=== PATIENT | male | born 2000 | race Hispanic/Latino ===

== ENCOUNTER 2021-01-14 11:00 | Inpatient (IN) | payer OTHER ==
[~2021-01-14] VITALS: Ht 167.6 cm; Wt 66.8 kg
[2021-01-14 12:00] LABS: HEMATOCRIT 43.2 % (42.0-52.0); HEMOGLOBIN 15.5 g/dl (13.5-17.5); MEAN CORPUSCULAR HEMOGLOBIN 33.3 pg (27.0-33.0); MEAN CORPUSCULAR HGB CONC 35.9 g/dl (32.0-36.5); MEAN CORPUSCULAR VOLUME 92.7 fl (80.0-96.0); PLATELET COUNT, AUTOMATED 265 10^3/uL (150-450); RED BLOOD COUNT 4.66 10^6/uL (4.30-6.10); WHITE BLOOD COUNT 6.3 10^3/uL (4.0-10.0)
[2021-01-14 12:34] LABS: ACETAMINOPHEN LEVEL < 2.0 UG/ML (10.0-30.0); ALBUMIN 4.2 GM/DL (3.2-5.2); ALT/SGPT 32 U/L (12-78); BILIRUBIN,DIRECT 0.2 MG/DL (0.0-0.2); BILIRUBIN,TOTAL 0.5 MG/DL (0.2-1.0); BLOOD UREA NITROGEN 7 MG/DL (7-18); CALCIUM LEVEL 9.6 MG/DL (8.5-10.1); CARBON DIOXIDE LEVEL 27 MEQ/L (21-32); CHLORIDE LEVEL 104 MEQ/L (98-107); CREATININE FOR GFR 0.83 MG/DL (0.70-1.30); ETHYL ALCOHOL (ETHANOL) 0.027 % (0.000-0.010); GLUCOSE, FASTING 81 MG/DL (70-100); SALICYLATE LEVEL < 1.7 MG/DL (5.0-30.0); SODIUM LEVEL 136 MEQ/L (136-145); TOTAL PROTEIN 8.1 GM/DL (6.4-8.2)
[2021-01-14 12:48] LABS: AMPHETAMINES LEVEL URINE NEGATIVE (NEGATIVE); BARBITURATES URINE NEGATIVE (NEGATIVE); BENZODIAZEPINES URINE NEGATIVE (NEGATIVE); CANNABINOIDS URINE NEGATIVE (NEGATIVE); COCAINE METABOLITE URINE NEGATIVE (NEGATIVE); METHADONE URINE NEGATIVE (NEGATIVE); OPIATES URINE NEGATIVE (NEGATIVE); PHENCYCLIDINE URINE NEGATIVE (NEGATIVE)
[2021-01-14 14:23] LABS: TROPONIN I < 0.02 NG/ML (< 0.10)
--- NOTE | 2021-01-14 19:39 | ECGEPIP ---
[facility] - ED Test Date: 2021-01-14 Pat Name: KARISSA HORTON Department: Room: - Gender: Male [employer]st: : 2000 Requested By: CHRIS Blackwell Order Number: [id number] Reading MD: Amrit Carroll Measurements Intervals [place] Rate: 84 P: 29 [place]: 146 QRS: -75 QRSD: 92 T: 51 QT: 338 QTc: 399 Interpretive Statements Normal sinus rhythm with sinus arrhythmia Left axis deviation Pulmonary disease pattern ST elevation, probable early repolarozation NO PRIOR ECG FOR COMPARISON Electronically Signed on 01-14-2021 19:39:06 EST by Amrit Carroll
[2021-01-15] MEDS ORDERED: MOM 30ML SUSPENSION UDC PO PRN (10:55)
[2021-01-15] MEDS ORDERED: ACETAMINOPHEN TAB 650MG DOSE (2X325MG) PO PRN (10:55)
[2021-01-15] MEDS ORDERED: MAALOX 30 ML SUSP *UDC PO PRN (10:55)
[2021-01-15 11:15] LABS: RSV AMPLIFICATION NEGATIVE (NEGATIVE)
[2021-01-15 14:37] VITALS: BP 122/60
[2021-01-15] MEDS ORDERED: SERTRALINE HCL 25 MG TABLET PO ONE (19:35)
[2021-01-15] MEDS ORDERED: traZODone 50 MG TAB PO PRN (19:35)
[2021-01-15] MEDS ORDERED: hydrOXYzine 50 MG TAB PO PRN (19:35)
--- NOTE | 2021-01-15 19:53 | MHHPEPDOC ---
General Date Of Admission: Jan 15, 2021 Legal Status: 9.39 Chief Complaint "I tried to hang myself." History of Present Illness HISTORY OF THE PRESENT ILLNESS: Patient is a 20 -year-old Single, Active Duty , male, who reported that he had tried to commit suicide by hanging in his room two nights ago. He stated that he has been stressed, depressed and anxious. 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 c "I had everything set up (my belt and the bed frame) and right before I called my friend" Patient had the belt around his neck and then he states he called his friend. "I went to [facility] and they brought me here." Reports that he had been planning this, other depressive symptoms are poor sleep, feelings of being overwhelmed. poor concentration and poor focus,. 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 Pt reports that he attempted to hang himself last night but does not recall making the decision to hang himself. Pt reported that he felt confused and his thoughts were "all over the place" and that he just wanted to end this. Pt reports that he does not have an appetite and is unable to sleep but does "not want to get out of bed." Pt also reports that he cannot focus and his thoughts are "all over the place." Pt reported that he has been stressed at work and stressed about not having seen family in over two years. Pt also reported that he has felt "unsafe and unsecure" since returning from deployment. Pt reports a history of feeling depressed but has not been sought treatment until today. Pt reports that he smokes cigarettes occasionally and drinks occasionally with friends on the weekend. Pt denies drug use but states he was really depressed when he returned from deployment and made a "mistake" and used cocaine one time. Pt enrolled himself in immediately after using cocaine but was drug tested by the . Pt is not currently in outpatient treatment and is not on any medication. Psychiatric Review of Systems Depression (2 or more weeks): depressed mood, insomnia/hypersomnia, feelings of excess/guilt (use to have it), decreased energy, difficulty concentrating, suicidal thoughts Birgit (4 or more days of): denies Psychosis: denies PTSD: history of trauma, nightmares and flashbacks, intrusive memories, hypervigilance, avoidance of triggers Anxiety: situational anxiety, stressor related anxiety Anxiety/ 6 months or more of: muscle tension, sleep disturbance Past Psychiatric History Previous Psychiatric Diagnosis: None Previous Psychiatric Admissions: This is the first hospitalization Suicide Attempts: this is the first time Psychiatric Follow-up: [facility] Psychiatric medications: None Past Medical History Medical Problems No chronic or acute medical problems No surgeries No allergies Head Injury: No Seizures: No Hospitalizations: No Surgeries: No Family Medical/Psychiatric HX Medical Problems Mother's father - cardiac issues, of liver cancer Maternal mother - depression Psychiatric Disorders: Yes Addiction: Yes (Grandmother) Suicide Attemps/Completions: Yes (Uncle - history of hanging) Addiction History nicotine (pack a week), alcohol (drinks a 6 pack on the weekends), cocaine (cocaine - used September it was first and last time, did NA and [facility]) Social History Childhood: Born in [place], [place]. Only grew up with Mother and Grandmother and Aunt. Has one brother and two sisters. Did decent in school, Describes his childhood as "moving around, studied in [place] for 6 years, went to [place] for 6-12 grades. Had no one to tell him what was right or wrong" Abuse/Trauma: No childhood trauma. 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 Current Living Situation: in the [facility] Education: High School Graduate Employment: Active [employer] [place] Social Support: Uncle, Auntie, Girlfriend, couple of friends Legal: None Marital: Single, never Stressor: 1)haven't been able to see family for two years 2)trauma from deployment Mental Status Examination General Appearance: well groomed, appears stated age, hospital scubs/clothing, other (tattoos on his arms, raised area above right eye brow) Build: average Demeanor: average Eye Contact: average Activity: average Behavior: cooperative Speech: clear, reg/rate,rhythm,volume Mood: depressed, anxious Affect: constricted Thought Process: logical/linear Thought Content (Delusions): none reported Thought Content (Other): none reported Thought Content (Aggressive): none reported Perception (Hallucinations): none reported Perception (Other): none reported Cognition (Impairment of): none reported Cognition(Intelligence Est.): average Oriented: Awake, Alert, Oriented times three Insight: fair Judgment: Fair Psychosis: Denies Diagnoses Post Traumatic Stress Disorder Major Depressive Disorder, Single Episode, Severe A-FIB/CHADSVASC A-FIB History Current/History of A-Fib/PAF?: No Current PO Anticoag Therapy: No Assessment Patient is a 20-year-old single active duty, male who comes to [facility] after attempting to hang himself. He called a friend delon davis helped him talk through some of his frustrations. He then reported [facility] from [employer] [facility], and he was brought here by his chain of command. Patient reports that his thoughts are all over the place and he wanted to end things. Reports depressive symptoms of poor appetite to poor sleep, poor motivation, poor focus, poor concentration, having stress not being able to see his family feeling unsafe and on secure since his deployment states he has been feeling depressed but not seeking treatment until today. Reports some smoking cigarettes. Occasional drinking on the weekends, states he is 1 time use of cocaine. He is enrolled himself in NA. Patient exhibiting symptoms of posttraumatic stress disorder. Start patient on Zoloft, titrate to 50 mg, hydroxyzine 50 mg every 6 hours when necessary for anxiety. Trazodone 50 mg daily at bedtime for insomnia. Prazosin 2 mg at bedtime for nightmares. Patient will be discharged in 2-3 days Initial Treatment Plan 1. Patient was admitted on a [9.39] status. 2. Complete history was obtained. 3. With patients permission, family will be contacted and database will be exp anded. 4. Patients medication regimen will be reviewed and changed accordingly. 5. Patient will be provided with protected environment. 6. Patient will be treated with individual, group, and milieu therapies. 7. Patient will receive supportive psych-education. 8. Discharge planning will commence immediately. 9. Outpatient follow-up treatment will be strongly recommended. 10. The initial treatment plan will focus initially on: * Depression. * Risk for suicide. ESTIMATED LENGTH OF STAY: 2-3 DAYS. TIME SPENT COUNSELING AND COORDINATING INITIAL CARE: 60 minutes. Vital Signs Vital Signs Date Time Temp Pulse Resp B/P (MAP) Pulse Ox O2 Delivery O2 Flow Rate FiO2 01/15/21 14:37 98.8 88 18 122/60 (80) 98 Room Air Laboratory Data 24[facility] Labs Laboratory Tests 2 01/15/21 09:46: Coronavirus (COVID-19)(PCR) NEGATIVE, Influenza Type A (RT-PCR) NEGATIVE, Influenza Type B (RT-PCR) NEGATIVE, Respiratory Syncytial Virus (PCR) NEGATIVE Medications No Active Prescriptions or Reported Meds Allergies Coded Allergies: No Known Allergies (Unverified , 01/14/21) EMILIO WIGGINS NP Jan 15, 2021 19:33
[2021-01-15] MEDS ORDERED: PRAZOSIN 1 MG CAP PO SCH (21:00)
[2021-01-16 06:33] VITALS: BP 128/60
[2021-01-16] MEDS ORDERED: SERT50TA29 PO (11:19)
[2021-01-16] MEDS ORDERED: PRAZ2CAP PO (11:19)
[2021-01-16] MEDS ORDERED: HYDR50TA70 PO (11:19)
--- NOTE | 2021-01-16 16:07 | MHDSPDOC ---
[facility] Discharge Summary Discharge Summary DATE OF ADMISSION: Jan 15, 2021 at 10:51 DATE OF DISCHARGE: Jan 16, 2021 at 12:50 DISCHARGE DIAGNOSES: Post Traumatic Stress Disorder Major Depressive Disorder, Single Episode, Severe REASON FOR ADMISSION: Patient is a 20 -year-old Single, Active Duty , male, who reported that he had tried to commit suicide by hanging in his room two nights ago. He stated that he has been stressed, depressed and anxious. 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 "I had everything set up (my belt and the bed frame) and right before I called my friend" Patient had the belt around his neck and then he states he called his friend. "I went to [facility] and they brought me here." Reports that he had been planning this, other depressive symptoms are poor sleep, feelings of being overwhelmed, poor concentration and poor focus. He reports PTSD since his deployment in [facility] CONSULTANTS INVOLVED: See Medical H + P by Hospitalist TREATMENT AND PROGRESS ON THE UNIT: Patient was admitted to the [facility] on a 9.39 legal status he was afforded the following treatment modalities: 1) Individual Therapy 2) Group Therapy 3) Medication Management 4) Milieu Therapy 5) Safe Environment HOSPITAL COURSE: Patient was admitted to [facility] on a 9.39 legal status. He was initially evaluated on 01/15/21 and was reevaluated this morning. Patient requested discharge and stated that he no longer felt depressed or suicidal. He states that he realized that he was very impulsive and that he had many reasons for living, mainly his family and his girlfriend and that he wants to have a career. He stated in today's interview that being admitted, he realiz ed that he was doing much better than the other peers and felt that he was safe to return home. He states that he is hopeful that he will be given a pass to see his family and if not his family is flying to see him. Patient has been requested to call this provider on Thursday for interim consultation and follow up. He verbalized and understanding and promised to return the call. I feel that patient is safe and no longer poses a threat to himself, as he reported that he is remorseful and feels sorry that he worried his family. DISCHARGE ASSESSMENT: In today's interview, patient is alert and oriented, pts dress is appropriate mildly disheveled. Hygiene and grooming is fair. Smiles on approach and is pleasant and engaged in the interview. Denies depression and anxiety. Denies suicidal and homicidal ideation, planning or intent. Denies and is not observed with shiv, psychotic symptoms of delusions, bizarre thinking, obsessions, paranoia, ruminations illogical thoughts, flight of ideas or having poor insight and judgement. Patient has normal mentation, declines further hospitalization on a voluntary status and meets criteria for discharge today. Patient encouraged to return to hospital if his symptoms worsen or change and encouraged to call unit if he/she/they needs to speak to provider for questions regarding medications or care. MENTAL STATUS EXAMINATION ON DISCHARGE: Patient is a 20 -year-old Single, Active Duty , male, who reported that he had tried to commit suicide by hanging in his room two nights ago. In today's interview he is calm and cooperative, smiles on approach, maintains good eye contact, denies continued depression and suicidal ideation. Speech: Is fluid, conversant, normal rate, tone and volume Language skills are intact Thought processes including: linear and goal oriented Thought content: denies depression and anxiety. Denies suicidal/homicidal idea tion, planning or intent. Abstract reasoning, and computation: fair Description of associations: denies, none observed Description of abnormal or psychotic thoughts: denies, none observed. Judgment: fair Insight: fair Orientation: alert and oriented to person, place, time and situation Recent and remote memory: intact Attention span and concentration: good Language: expansive Fund of knowledge: average Mood: Euthymic Mood Affect: reactive MEDICATIONS ON DISCHARGE: See Medication Reconciliation PLAN[facility]FOLLOWUP ARRANGEMENTS[facility] The amount of time spent in the coordination of care for this patient was approximately 25 minutes. Vital Signs/I&Os Vital Signs Date Time Temp Pulse Resp B/P (MAP) Pulse Ox O2 Delivery O2 Flow Rate FiO2 01/16/21 06:33 97.3 92 16 128/60 (82) 98 Room Air Medications Scheduled Prazosin Hcl (Prazosin HCl) 2 Mg Capsule, 2 MG PO QPM for Nightmares, #7 Sertraline HCl (Sertraline HCl) 50 Mg Tablet, 50 MG PO QHS for Depression, #7 Scheduled PRN Hydroxyzine HCl (Hydroxyzine HCl) 50 Mg Tablet, 50 MG PO BIDP PRN for ANXIETY, #14 Allergies Coded Allergies: No Known Allergies (Unverified , 01/14/21) EMILIO WIGGINS NP Jan 16, 2021 16:07
[2021-01-16] MEDS ORDERED: SERTRALINE HCL 50 MG TAB PO SCH (21:00)
== END 2021-01-16 12:50 | disposition home or self-care (01) | DRG 882 ==
LOC: M ED 11:00 → M ED INP 01-15 10:51 → M PSY 01-15 12:48 → M OR 01-15 19:52 → M PSY 01-15 20:36
PROVIDERS: ADMIT Psychiatry & Neurology Child & Adolescent Psychiatry; ATTEND Psychiatry & Neurology Psychiatry
DX: F43.10 Post-traumatic stress disorder, unspecified (principal); F32.2 Major depressive disorder, single episode, severe without psychotic features; R45.851 Suicidal ideations

== ENCOUNTER 2021-02-16 12:48 | Emergency (ER) | payer OTHER ==
[~2021-02-16] VITALS: Ht 167.6 cm; Wt 66.8 kg
[~2021-02-16 12:48] MED LIST: HYDR50TA70 PO; PRAZ2CAP PO; SERT50TA29 PO
--- NOTE | 2021-02-16 13:54 | REP ---
INDICATION: injury COMPARISON: None. TECHNIQUE: There are four views. FINDINGS: There is soft tissue edema dorsally. There is no fracture or dislocation. Mineralization and joint spaces are normal. There are no calcifications or foreign bodies. IMPRESSION: Soft tissue edema dorsally. <Electronically signed by Reuben Gray > 02/16/21 [id number]
[2021-02-16 14:46] VITALS: BP 155/83
== END 2021-02-16 14:47 | disposition home or self-care (01) ==
LOC: M ED 12:48
DX: S60.221A Contusion of right hand, initial encounter (principal); W50.0XXA Accidental hit or strike by another person, initial encounter; X58.XXXA Exposure to other specified factors, initial encounter; Y92.9 Unspecified place or not applicable; Y93.89 Activity, other specified; Y99.9 Unspecified external cause status; M54.9 Dorsalgia, unspecified; F41.9 Anxiety disorder, unspecified; F32.9 Major depressive disorder, single episode, unspecified; F17.200 Nicotine dependence, unspecified, uncomplicated